=== PATIENT | female | born 2000 | race American Indian/Alaskan Native ===

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

== ENCOUNTER 2019-05-25 12:52 | Emergency (ER) | payer MEDICARE ==
--- NOTE | 2019-05-25 13:11 | Event Note ---
ED Screening Note Date of service: 05/25/19 Time: 13:09 ED Screening Note: This is a 18 y.o. F. that presents to the ER with headache for several days. PMH of HTN Off blood pressure medication for 1 week. Denies palpitations, chest pain, visual changes. This initial assessment/diagnostic orders/clinical plan/treatment(s) is/are subject to change based on patients health status, clinical progression and re- assessment by fellow clinical providers in the ED. Further treatment and workup at subsequent clinical providers discretion. Patient/guardian urged not to elope from the ED as their condition may be serious if not clinically assessed and managed. Initial orders include:
[2019-05-25 13:12] VITALS: BP 153/95
[2019-05-25] MEDS ORDERED: KETOROLAC 30 MG/1 ML INJ IM ONE (13:42)
[2019-05-25] MEDS ORDERED: oxyCODONE /ACETAMINOPHEN 5-325MG TAB PO ONE (13:42)
--- NOTE | 2019-05-25 13:48 | Emergency Department Report ---
ED Headache HPI - General Chief Complaint: Headache Stated Complaint: SEVERE HEADACHE/PAIN Time Seen by Provider: 05/25/19 13:09 Source: patient, old records Exam Limitations: no limitations - History of Present Illness Initial Comments: Rubi is a pleasant 18-year-old female with history of schizophrenia, hypertension, obesity who presents with headache left temporal region for several weeks. She explained that she's had headaches for several years since her teenage years. Her spool cleaner hand has referred her to a neurologist. However she missed her appointment. Dull headache without photophobia vomiting or neck pain. No fever. This headache has been intermittent for the past several weeks. Denies visual changes. Denies paresthesias. Denies walking PCP is Dr. Andrea Pete The consciousness is Dr. Vital Dictations include Alicia Marquez Norvasc Timing/Duration: other (several weeks) Quality: moderate Head Injury Location: temporal, parietal Recent Head Trauma: frequent headaches, chronic headaches Associated Symptoms: denies symptoms Allergies/Adverse Reactions: Allergies amoxicillin Allergy (Verified 06/06/17 21:10) Anaphylaxis Penicillins Allergy (Verified 06/06/17 21:10) Anaphylaxis quetiapine [From Seroquel] Allergy (Verified 06/06/17 21:10) Angioedema Home Medications: Ambulatory Orders Sertraline [Zoloft] 50 mg PO DAILY 08/25/17 risperiDONE [RisperDAL] 2 mg PO QHS 08/25/17 Butalb/Acetamin/Caff 50-325-40 [Fioricet 50-325-40] 1 tab PO Q6HR PRN #10 tab 05/25/19 ED Review of Systems ROS: Stated complaint: SEVERE HEADACHE/PAIN Other details as noted in HPI Comment: All other systems reviewed and negative Constitutional: denies: fever, malaise Cardiovascular: denies: chest pain Gastrointestinal: denies: abdominal pain, nausea, vomiting Neurological: headache. denies: weakness, numbness, paresthesias, confusion, abnormal gait, vertigo Psychiatric: denies: auditory hallucinations, visual hallucinations, homicidal thoughts, suicidal thoughts ED Past Medical Hx - Past Medical History Previous Medical History?: Yes Hx Hypertension: Yes Hx Psychiatric Treatment: Yes (schizophrenia, hearing voices) - Surgical History Past Surgical History?: No - Social History Smoking Status: Never Smoker Substance Use Type: None - Medications Home Medications: Home Medications Medication Instructions Recorded Confirmed Last Taken Type Sertraline [Zoloft] 50 mg PO DAILY 08/25/17 08/25/17 08/25/17 History risperiDONE [RisperDAL] 2 mg PO QHS 08/25/17 08/25/17 08/24/17 History Butalb/Acetamin/Caff 50-325-40 1 tab PO Q6HR PRN #10 tab 05/25/19 Unknown Rx [Fioricet 50-325-40] ED Physical Exam - General Limitations: No Limitations General appearance: alert, in no apparent distress, other (appears well, appears comfortable, currently talking on cell phone ) - Head Head exam: Present: atraumatic, normocephalic - Eye Eye exam: Present: normal appearance. Absent: scleral icterus, conjunctival injection - ENT ENT exam: Present: mucous membranes moist - Neck Neck exam: Present: normal inspection, full ROM - Respiratory Respiratory exam: Present: normal lung sounds bilaterally. Absent: respiratory distress, wheezes, rales, rhonchi - Cardiovascular Cardiovascular Exam: Present: regular rate, normal rhythm, normal heart sounds. Absent: systolic murmur, diastolic murmur, rubs, gallop - GI/Abdominal GI/Abdominal exam: Present: soft, normal bowel sounds. Absent: distended, tenderness, guarding, rebound - Extremities Exam Extremities exam: Present: normal inspection - Neurological Exam Neurological exam: Present: alert, oriented X3, CN II-XII intact, normal gait, other (articulate insightful able to provide a full detailed medical history). Absent: motor sensory deficit - Psychiatric Psychiatric exam: Present: normal mood, flat affect - Skin Skin exam: Present: warm, dry, intact, normal color. Absent: rash ED Course Vital Signs 05/25/19 13:09 Temperature 98.4 F Pulse Rate 115 H Respiratory 16 Rate Blood Pressure 153/95 [Left] O2 Sat by Pulse 96 Oximetry ED Medical Decision Making - Medical Decision Making Rubi presents with left temporal parietal headache for several weeks. Differential diagnosis includes: Tension headache, migraine headache, pseudotumor cerebri. She will benefit from outpatient neurological evaluation. I strongly encourage evaluation by neurologist. She understands if symptoms glass. Prescribed Fioricet. Critical care attestation.: If time is entered above; I have spent that time in minutes in the direct care of this critically ill patient, excluding procedure time. ED Disposition Clinical Impression: Headache, acute Disposition: DC-01 TO HOME OR SELFCARE Is pt being admited?: No Does the pt Need Aspirin: No Condition: Stable Additional Instructions: It is very important that you see a neurologist for further treatment and evaluation. Prescriptions: Butalb/Acetamin/Caff 50-325-40 [Fioricet 50-325-40] 1 tab PO Q6HR PRN #10 tab PRN Reason: Headache Referrals: ALMA GUPTA MD [Staff Physician] - [facility]
== END 2019-05-25 13:58 | disposition home or self-care (01) ==
LOC: ED 12:52
DX: R51 Headache (principal); I10 Essential (primary) hypertension; F20.9 Schizophrenia, unspecified; Z79.899 Other long term (current) drug therapy; Z88.2 Allergy status to sulfonamides; Z88.1 Allergy status to other antibiotic agents; Z88.8 Allergy status to other drugs, medicaments and biological substances
CPT/HCPCS: 96372; 99282; J1885

== ENCOUNTER 2019-05-29 10:45 | Emergency (ER) | payer MEDICARE ==
[2019-05-29] MEDS ORDERED: SODIUM CHLORIDE 0.9% 1000 ML 1,000 ML IV ONE (11:46)
[2019-05-29] MEDS ORDERED: ONDANSETRON 4 MG/2 ML INJ IV ONE (11:46)
--- NOTE | 2019-05-29 11:46 | Emergency Department Report ---
ED N/V/D HPI - General Chief complaint: Nausea/Vomiting/Diarrhea Stated complaint: HEADACHE/MIGRAINE/HEADACHE/VOMITING Time Seen by Provider: 05/29/19 11:34 Source: patient Mode of arrival: Ambulatory Limitations: No Limitations - History of Present Illness Initial comments: 18 year old female presents to ED c/o nausea and vomiting and upper abdominal pa in. Onset 4 weeks ago. She states nausea and vomiting mainly after eating. She also reports associated left parietal OTOOLE intermittently x 4 weeks. She denies any diarrhea, ill contacts, bad food intake, or recent travel. She denies any abdominal surgeries. Her L[facility] was beginning of May. She denies any vaginal or uti symptoms. Denies any fever or chills. MD complaint: nausea, vomiting, abdominal pain -: week(s) (4 weeks ) - Related Data Home Medications Medication Instructions Recorded Confirmed Last Taken Sertraline [Zoloft] 50 mg PO DAILY 08/25/17 08/25/17 08/25/17 risperiDONE [RisperDAL] 2 mg PO QHS 08/25/17 08/25/17 08/24/17 Previous Rx's Medication Instructions Recorded Last Taken Type Butalb/Acetamin/Caff 50-325-40 1 tab PO Q6HR PRN #10 tab 05/25/19 Unknown Rx [Fioricet 50-325-40] Famotidine [Pepcid] 40 mg PO QHS #30 tablet 05/29/19 Unknown Rx Ondansetron [Zofran Odt] 4 mg PO Q8HR PRN #15 tab.rapdis 05/29/19 Unknown Rx Allergies Allergy/AdvReac Type Severity Reaction Status Date / Time amoxicillin Allergy Anaphylaxis Verified 06/06/17 21:10 Penicillins Allergy Anaphylaxis Verified 06/06/17 21:10 quetiapine [From Seroquel] Allergy Angioedema Verified 06/06/17 21:10 ED Review of Systems ROS: Stated complaint: HEADACHE/MIGRAINE/HEADACHE/VOMITING Other details as noted in HPI Comment: All other systems reviewed and negative Constitutional: denies: chills, fever Cardiovascular: denies: chest pain Gastrointestinal: abdominal pain, nausea, vomiting. denies: diarrhea, hematemesis Genitourinary: denies: frequency, hematuria, discharge Musculoskeletal: denies: back pain Skin: denies: rash Neurological: headache. denies: weakness, numbness, paresthesias, confusion, abnormal gait, vertigo ED Past Medical Hx - Past Medical History Previous Medical History?: Yes Hx Hypertension: Yes Hx Psychiatric Treatment: Yes (schizophrenia, hearing voices) - Surgical History Past Surgical History?: No - Social History Smoking Status: Never Smoker - Medications Home Medications: Home Medications Medication Instructions Recorded Confirmed Last Taken Type Sertraline [Zoloft] 50 mg PO DAILY 08/25/17 08/25/17 08/25/17 History risperiDONE [RisperDAL] 2 mg PO QHS 08/25/17 08/25/17 08/24/17 History Butalb/Acetamin/Caff 50-325-40 1 tab PO Q6HR PRN #10 tab 05/25/19 Unknown Rx [Fioricet 50-325-40] Famotidine [Pepcid] 40 mg PO QHS #30 tablet 05/29/19 Unknown Rx Ondansetron [Zofran Odt] 4 mg PO Q8HR PRN #15 tab.rapdis 05/29/19 Unknown Rx ED Physical Exam - General Limitations: No Limitations General appearance: alert, in no apparent distress - Head Head exam: Present: atraumatic, normocephalic - Eye Eye exam: Present: normal appearance, PERRL, EOMI - ENT ENT exam: Present: normal exam, mucous membranes dry (Mild ) - Neck Neck exam: Present: normal inspection. Absent: tenderness, meningismus - Respiratory Respiratory exam: Present: normal lung sounds bilaterally. Absent: respiratory distress, wheezes, rales, rhonchi - Cardiovascular Cardiovascular Exam: Present: regular rate, normal rhythm, normal heart sounds - GI/Abdominal GI/Abdominal exam: Present: soft, tenderness (Eigastric and RUQ without guarding or rebound) - Back Exam Back exam: Present: full ROM - Neurological Exam Neurological exam: Present: alert, oriented X3, CN II-XII intact - Psychiatric Psychiatric exam: Present: normal affect, normal mood ED Course Vital Signs 05/29/19 05/29/19 13:33 14:03 Respiratory 18 16 Rate ED Medical Decision Making - Lab Data Result diagrams: 05/29/19 13:05 05/29/19 13:05 - Radiology Data Radiology results: report reviewed Ordering Physician: EMA GAYTAN Date of Service: 05/29/19 Procedure(s): US abdomen limited Accession Number(s): [id number] cc: EMA Evens [place] ULTRASOUND ABDOMEN, LIMITED (RIGHT UPPER QUADRANT) INDICATION: Epigastric/RUQ pain nausea and vomiting. COMPARISON: None available. FINDINGS: Pancreas: Visualized portion shows no significant abnormality. Liver: Normal. Gallbladder: Normal. Bile ducts: Normal. Common Bile Duct measures 3.3 mm. Free fluid: None. Additional Findings: None. IMPRESSION: Unremarkable right upper quadrant ultrasound. Signer Name: Toribio Valdes MD Signed: 05/29/2019 1:12 PM Workstation Name: [id number] Transcribed By: ES Dictated By: Toribio Valdes MD Electronically Authenticated By: Toribio Valdes MD Signed Date/Time: 05/29/19 131 DD/ TD/TT: - Medical Decision Making Patient reports feeling better after medications and fluids. Ultrasound and labs unremarkable. Repeat abdominal exams are soft nontender abdomen. Patient is not ill-appearing, nontoxic, does not appear to be in any acute distress. VS remained stable. Discussed lab results, ultrasound results, suspected diagnosis and treatment plan with patient. Recommended follow-up with primary care doctor and/or GI specialist if her pain continues, but if she gets worse recommend she return to the ER. Patient is stable at time of discharge. Critical care attestation.: If time is entered above; I have spent that time in minutes in the direct care of this critically ill patient, excluding procedure time. ED Disposition Clinical Impression: Epigastric pain, Gastritis, Vomiting Disposition: TO HOME OR SELFCARE Is pt being admited?: No Does the pt Need Aspirin: No Condition: Stable Instructions: Gastritis (ED), Acute Nausea and Vomiting (ED), Abdominal Pain (ED) Prescriptions: Famotidine [Pepcid] 40 mg PO QHS #30 tablet Ondansetron [Zofran Odt] 4 mg PO Q8HR PRN #15 tab.rapdis PRN Reason: Vomiting Referrals: [facility] MD JOSE [Primary Care Provider] - 3-5 Days TATUM DURBIN MD [Staff Physician] - 3-5 Days [facility] [Provider Group] - 3-5 Days Time of Disposition: 14:47
[2019-05-29] MEDS ORDERED: KETOROLAC 30 MG/1 ML INJ IV ONE (11:47)
[2019-05-29] MEDS ORDERED: FAMOTIDINE 20 MG/2 ML INJ IV ONE (11:47)
[2019-05-29 12:22] LABS: HCG Qualitative,Urine Negative (Negative)
[2019-05-29 12:34] LABS: Bacteria,Urine 1+ /HPF (Negative); Bilirubin,Urine NEG (Negative); Blood,Urine NEG (Negative); Color,Urine Yellow (Yellow); Protein,Urine <15 mg/dL mg/dL (Negative); Urobilinogen,Urine < 2.0 mg/dL (<2.0)
--- NOTE | 2019-05-29 13:17 | Ultrasound Report ---
ULTRASOUND ABDOMEN, LIMITED (RIGHT UPPER QUADRANT) INDICATION: Epigastric/RUQ pain nausea and vomiting. COMPARISON: None available. FINDINGS: Pancreas: Visualized portion shows no significant abnormality. Liver: Normal. Gallbladder: Normal. Bile ducts: Normal. Common Bile Duct measures 3.3 mm. Free fluid: None. Additional Findings: None. IMPRESSION: Unremarkable right upper quadrant ultrasound. Signer Name: Toribio Valdes MD Signed: 05/29/2019 1:12 PM Workstation Name: [id number]
[2019-05-29 13:56] LABS: Basophils % (Auto) 0.6 % (0.0-1.8); Eosinophils % (Auto) 0.7 % (0.0-4.3); Hematocrit 36.5 % (30.3-42.9); Hemoglobin 12.2 gm/dl (10.1-14.3); Lymphocytes # (Auto) 1.4 K/mm3 (1.2-5.4); Lymphocytes % (Auto) 19.5 % (13.4-35.0); Mean Corpuscular HGB Conc 34 % (30-34); Mean Corpuscular Volume 83 fl (79-97); Monocytes # (Auto) 0.4 K/mm3 (0.0-0.8); Monocytes % (Auto) 6.3 % (0.0-7.3); Platelet Count 357 K/mm3 (140-440); Red Blood Count 4.38 M/mm3 (3.65-5.03); Red Cell Distribution Width 15.5 % (13.2-15.2)
[2019-05-29 14:21] LABS: Alanine Aminotransferase 26 units/L (7-56); BUN/Creatinine Ratio 13; Blood Urea Nitrogen 8 mg/dL (7-17); Calcium 9.5 mg/dL (8.4-10.2); Hemolysis Index 6
== END 2019-05-29 14:54 | disposition home or self-care (01) ==
LOC: ED 10:45
DX: K29.70 Gastritis, unspecified, without bleeding (principal); I10 Essential (primary) hypertension; F20.9 Schizophrenia, unspecified; Z79.899 Other long term (current) drug therapy; Z88.1 Allergy status to other antibiotic agents; Z88.0 Allergy status to penicillin; Z88.6 Allergy status to analgesic agent
CPT/HCPCS: 36415; 76705; 80053; 81001; 81025; 83690; 85025; 96361; 96374; 96375; 99284; J1885; J2405; J7030

== ENCOUNTER 2019-06-03 15:30 | Emergency (ER) | payer MEDICARE ==
[2019-06-03 19:24] VITALS: BP 136/80
--- NOTE | 2019-06-03 19:28 | Event Note ---
ED Screening Note Date of service: 06/03/19 Time: 19:27 ED Screening Note: c/o mid/upper abdominal pain and N/V (witheating only) x 2 days seen here for same 05/29/19 This initial assessment/diagnostic orders/clinical plan/treatment(s) is/are subject to change based on patients health status, clinical progression and re- assessment by fellow clinical providers in the ED. Further treatment and workup at subsequent clinical providers discretion. Patient/guardian urged not to elope from the ED as their condition may be serious if not clinically assessed and managed. Initial orders include: Labs CT
[2019-06-03 20:45] LABS: Bacteria,Urine 1+ /HPF (Negative); Bilirubin,Urine NEG (Negative); Blood,Urine NEG (Negative); Color,Urine Yellow (Yellow); HCG Qualitative,Urine Negative (Negative); Mucus,Urine 2+ /HPF; Protein,Urine <15 mg/dL mg/dL (Negative); Urobilinogen,Urine < 2.0 mg/dL (<2.0)
[2019-06-03 20:46] LABS: Basophils # (Auto) 0.1 K/mm3 (0.0-0.1); Eosinophils # (Auto) 0.1 K/mm3 (0.0-0.4); Eosinophils % (Auto) 0.9 % (0.0-4.3); Hematocrit 36.6 % (30.3-42.9); Hemoglobin 12.4 gm/dl (10.1-14.3); Lymphocytes # (Auto) 2.1 K/mm3 (1.2-5.4); Lymphocytes % (Auto) 27.5 % (13.4-35.0); Mean Corpuscular HGB Conc 34 % (30-34); Mean Corpuscular Volume 83 fl (79-97); Monocytes # (Auto) 0.5 K/mm3 (0.0-0.8); Monocytes % (Auto) 6.1 % (0.0-7.3); Platelet Count 366 K/mm3 (140-440); Red Blood Count 4.43 M/mm3 (3.65-5.03)
[2019-06-03 21:07] LABS: Alanine Aminotransferase 30 units/L (7-56); Albumin 4.2 g/dL (3.9-5); BUN/Creatinine Ratio 16; Blood Urea Nitrogen 11 mg/dL (7-17); Calcium 9.7 mg/dL (8.4-10.2); Hemolysis Index 23
== END 2019-06-03 20:30 | disposition left against medical advice (07) ==
LOC: ED 15:30
DX: R10.10 Upper abdominal pain, unspecified (principal); Z53.21 Procedure and treatment not carried out due to patient leaving prior to being seen by health care provider
CPT/HCPCS: 36415; 80053; 81001; 81025; 83690; 85025

== ENCOUNTER 2019-12-28 14:56 | Emergency (ER) | payer MEDICARE ==
[2019-12-28 15:41] LABS: Basophils % (Auto) 0.7 % (0.0-1.8); Eosinophils # (Auto) 0.1 K/mm3 (0.0-0.4); Eosinophils % (Auto) 0.8 % (0.0-4.3); Hematocrit 38.9 % (30.3-42.9); Hemoglobin 12.6 gm/dl (10.1-14.3); Lymphocytes % (Auto) 30.4 % (13.4-35.0); Mean Corpuscular HGB Conc 33 % (30-34); Mean Corpuscular Volume 80 fl (79-97); Monocytes # (Auto) 0.6 K/mm3 (0.0-0.8); Monocytes % (Auto) 8.6 % (0.0-7.3); Platelet Count 353 K/mm3 (140-440); Red Blood Count 4.84 M/mm3 (3.65-5.03); Red Cell Distribution Width 15.9 % (13.2-15.2)
[2019-12-28 15:51] LABS: BUN/Creatinine Ratio 11; Blood Urea Nitrogen 8 mg/dL (7-17); Calcium 9.3 mg/dL (8.4-10.2); Hemolysis Index 11
--- NOTE | 2019-12-29 03:15 | Emergency Department Report ---
HPI - General Chief Complaint: Psych Time Seen by Provider: 12/29/19 03:06 - [facility] HPI: Room 16 The patient is a 19-year-old female present with a chief complaint of suicidal ideation. Patient has a history of schizophrenia and depression and states for the past month she has had suicidal ideation. Patient states she has been compliant with all her medications. Patient states she has not made any attempts at harming herself since she has had these thoughts but her plan was to hang herself. ED Past Medical Hx - Past Medical History Previous Medical History?: Yes Hx Hypertension: Yes Hx Psychiatric Treatment: Yes (schizophrenia, hearing voices, depression) - Surgical History Past Surgical History?: No - Family History Family history: no significant - Social History Smoking Status: Never Smoker Substance Use Type: None (Denies illicit drug use) - Medications Home Medications: Home Medications Medication Instructions Recorded Confirmed Last Taken Type Sertraline [Zoloft] 50 mg PO DAILY 08/25/17 12/27/19 08/25/17 History risperiDONE [RisperDAL] 2 mg PO QHS 08/25/17 12/27/19 08/24/17 History ED Review of Systems ROS: Stated complaint: SUICIDAL THOUGHTS Other details as noted in HPI Constitutional: no symptoms reported Respiratory: no symptoms reported Endocrine: no symptoms reported Psychiatric: suicidal thoughts Physical Exam - Physical Exam Vital Signs: Vital Signs 12/28/19 15:07 Temperature 98.9 F Pulse Rate 105 H Respiratory 18 Rate Blood Pressure 144/97 O2 Sat by Pulse 99 Oximetry Physical Exam: GENERAL: The patient is well-developed well-nourished female lying on stretcher not appearing to be in acute distress. [] HEENT: Normocephalic. Atraumatic. Extraocular motions are intact. Patient has moist mucous membranes. NECK: Supple. Trachea midline CHEST/LUNGS: Clear to auscultation. There is no respiratory distress noted. HEART/CARDIOVASCULAR: Regular. There is no tachycardia. There is no gallop rub or murmur. ABDOMEN: Abdomen is soft, nontender. Patient has normal bowel sounds. There is no abdominal distention. SKIN: There is no rash. There is no edema. There is no diaphoresis. NEURO: The patient is awake, alert, and oriented. The patient is cooperative. The patient has normal speech MUSCULOSKELETAL: There is no evidence of acute injury. ED Course Vital Signs 12/28/19 15:07 Temperature 98.9 F Pulse Rate 105 H Respiratory 18 Rate Blood Pressure 144/97 O2 Sat by Pulse 99 Oximetry ED Medical Decision Making - Lab Data Result diagrams: 12/28/19 15:19 12/28/19 15:19 Laboratory Tests 12/28/19 12/28/19 12/28/19 15:19 15:19 15:19 WBC RBC Hgb Hct MCV MCH MCHC RDW Plt Count Lymph % (Auto) Deuel % (Auto) Eos % (Auto) Baso % (Auto) Lymph # Deuel # Eos # Baso # Seg Neutrophils % Seg Neutrophils # Sodium 139 Potassium 3.6 Chloride 103.0 Carbon Dioxide 22 Anion Gap 18 BUN 8 Creatinine 0.7 Estimated GFR > 60 BUN/Creatinine Ratio 11 Glucose 141 H Calcium 9.3 Salicylates < 0.3 L Acetaminophen < 5.0 L Plasma/Serum Alcohol 12/28/19 12/28/19 15:19 15:19 WBC 6.6 RBC 4.84 Hgb 12.6 Hct 38.9 MCV 80 MCH 26 L MCHC 33 RDW 15.9 H Plt Count 353 Lymph % (Auto) 30.4 Deuel % (Auto) 8.6 H Eos % (Auto) 0.8 Baso % (Auto) 0.7 Lymph # 2.0 Deuel # 0.6 Eos # 0.1 Baso # 0.0 Seg Neutrophils % 59.5 Seg Neutrophils # 3.9 Sodium Potassium Chloride Carbon Dioxide Anion Gap BUN Creatinine Estimated GFR BUN/Creatinine Ratio Glucose Calcium Salicylates Acetaminophen Plasma/Serum Alcohol < 0.01 - Differential Diagnosis Suicidal ideation Critical care attestation.: If time is entered above; I have spent that time in minutes in the direct care of this critically ill patient, excluding procedure time. ED Disposition Clinical Impression: Suicidal ideation Disposition: [id number]/TX-[facility] PS[facility] HOSP/PSY UNIT Is pt being admited?: No Does the pt Need Aspirin: No Condition: Stable Referrals: PRIMARY CARE, [Primary Care Provider] - 3-5 Days Time of Disposition: 03:14 (Awaiting acceptance)
[2019-12-29 17:42] LABS: Bilirubin,Urine NEG (Negative); Blood,Urine NEG (Negative); Color,Urine Yellow (Yellow); Mucus,Urine FEW /HPF; Protein,Urine <15 mg/dL mg/dL (Negative); Urobilinogen,Urine < 2.0 mg/dL (<2.0)
[2019-12-29 17:49] LABS: Amphetamine Screen,Urine PRESUMPTIVE NEGATIVE; Benzodiazepines Screen,Urine PRESUMPTIVE NEGATIVE; Cannabinoid Screen,Urine PRESUMPTIVE NEGATIVE; Cocaine Screen,Urine PRESUMPTIVE NEGATIVE; Methadone Screen,Urine PRESUMPTIVE NEGATIVE; Opiate Screen,Urine PRESUMPTIVE NEGATIVE
--- NOTE | 2019-12-30 09:56 | Consultation ---
History of Present Illness - Reason for Consult Consult date: 12/30/19 Reason for consult: SI, AH - History of Present Psychiatric Illness The patient's medical record was reviewed and the patient's progress was discussed with the nursing staff. The nurse note states the patient reports SI with no plan and AH "telling me to ." Pt denies HI or VH. Rubi Martin is a 19y/o female patient who presents to the ER with suicidal ideation x one week and auditory hallucinations. The patient states that she's been off her medications for about a week. She says she wasn't taking them as prescribed because she feels like "they don't work." The patient verbalizes being "depressed, and it's getting worse." The patient says she is currently suicidal, but has no plan. She says she "hears voices telling me I should be ." The patient says she has a history of "depression and schizoaffective disorder." She says she normally takes "trileptal, zoloft, and remeron." The patient denies any illicit drug use, alcohol or nicotine. PAST PSYCHIATRIC HISTORY Diagnoses: Schizoaffective Disorder and Depression Suicide attempts or Self-harm behavior: Twice Prior psychiatric hospitalizations: Twice Substance Abuse history: Denies Previous psychiatric medications tried: zoloft, trileptal, seroqul, remeron Outpatient treatment: Yes PAST MEDICAL HISTORY: None reported Family Psychiatric History: None reported or documented SOCIAL HISTORY Marital Status: Single Living Arrangements: retirement Employment Status: Unemployed Access to guns/weapons: Denies Education: 11th grade History of Abuse: Denies Legal History: Denies REVIEW OF SYSTEMS Constitutional: Negative for weight loss ENT: Negative for stridor Respiratory: Negative for cough or hemoptysis All other systems reviewed and are negative MENTAL STATUS EXAMINATION General Appearance: Dressed appropriately Behavior: Calm and cooperative Mood: "depressed" Affect and affective range: Congruent with stated mood Speech: Normal tone and pace Thought Process: Goal directed Thought content: Suicidal Ideation: Yes Homicidal Ideation: Denies Hallucination: Auditory Delusions: None elicited Insight/Judgment: Limited Memory/Cognition: Limited ASSESSMENT Major Depressive Disorder, Severe w/Psychotic Features RECOMMENDATIONS MEDICATIONS Start Abilift 5mg po daily Increase Zoloft 100mg po daily Start Trazodone 50mg po qhs Start Depakote DR 125mg po BID Risks, benefits and alternatives of medications discussed with the patient, questions answered and consent obtained from patient. PSYCHOTHERAPY: Supportive psychotherapy provided MEDICAL: Per primary team DELIRIUM PRECAUTIONS: Please re-orient patient frequently, keep lights on during the day, and minimize benzodiazepines and opiates as these medications could worsen patient's confusion. [employer] TEAMMATE: per medical team DISPOSITION: The patient meets the requirement for acute inpatient psychiatric treatment. She may transfer to an acute psychiatric facility medically clear. The patient Will continue to follow Thank you for the consult. Please contact with any questions and/or concerns. Medications and Allergies Allergies Allergy/AdvReac Type Severity Reaction Status Date / Time amoxicillin Allergy Anaphylaxis Verified 06/06/17 21:10 Penicillins Allergy Anaphylaxis Verified 06/06/17 21:10 quetiapine [From Seroquel] Allergy Angioedema Verified 06/06/17 21:10 Home Medications Medication Instructions Recorded Confirmed Last Taken Type Sertraline [Zoloft] 50 mg PO DAILY 08/25/17 12/27/19 08/25/17 History risperiDONE [RisperDAL] 2 mg PO QHS 08/25/17 12/27/19 08/24/17 History Mental Status Exam - Vital signs Last Vital Signs Temp 98.1 F 12/30/19 02:00 Pulse 99 H 12/30/19 02:00 Resp 16 12/30/19 08:28 BP 120/67 12/30/19 02:00 Pulse Ox 96 12/30/19 02:00 Results Result Diagrams: 12/28/19 15:19 12/28/19 15:19 All other labs normal.
[2019-12-30] MEDS ORDERED: SERTRALINE 100 MG TAB PO SCH (11:00)
[2019-12-30] MEDS ORDERED: DIVALPROEX DR 125 MG TAB PO SCH (11:00)
[2019-12-30] MEDS ORDERED: ARIPiprazole 5 MG TAB PO SCH (11:00)
[2019-12-30] MEDS ORDERED: risperiDONE 1 MG TAB PO SCH (14:00)
[2019-12-30 20:04] LABS: HCG Qualitative,Urine Negative (Negative)
[2019-12-30 21:46] VITALS: BP 122/76
[2019-12-30] MEDS ORDERED: traZODone 50 MG TAB PO SCH (22:00)
== END 2019-12-30 21:22 ==
LOC: ED 14:56
DX: I10 Essential (primary) hypertension (principal); F20.9 Schizophrenia, unspecified; F32.9 Major depressive disorder, single episode, unspecified; Z79.899 Other long term (current) drug therapy
CPT/HCPCS: 36415; 80048; 80307; 80320; 81001; 81025; 85025; G0480

== ENCOUNTER 2021-08-02 17:57 | Emergency (ER) | payer MEDICARE | END 2021-08-02 20:47 | disposition left against medical advice (07) | LOC: ED 17:57 | DX: R10.9 Unspecified abdominal pain (principal); Z53.21 Procedure and treatment not carried out due to patient leaving prior to being seen by health care provider ==

== ENCOUNTER 2021-08-06 21:00 | Emergency (ER) | payer MEDICARE ==
[2021-08-06] MEDS ORDERED: LORazepam 2 MG/ML VIAL IM PRN (23:29)
[2021-08-06] MEDS ORDERED: HALOPERIDOL LACTATE 5 MG/1 ML INJ IM PRN (23:29)
--- NOTE | 2021-08-06 23:30 | Emergency Department Report ---
ED General Adult HPI - General Chief complaint: Psych Stated complaint: MENTAL HEALTH CONCERNS Time Seen by Provider: 08/06/21 22:48 Source: patient, RN notes reviewed, old records reviewed Mode of arrival: Ambulatory Limitations: No Limitations - History of Present Illness Initial comments: The patient was evaluated in the emergency department for symptoms described in the history of present illness. He/she was evaluated in the context of the global COVID-19 pandemic, which necessitated consideration that the patient might be at risk for infection with the virus that causes COVID-19. Institutional protocols and algorithms that pertain to the evaluation of patients at risk for COVID-19 are in a state of rapid change based on information released by regulatory bodies including the CDC and federal and state organizations. These policies and algorithms were followed during the patient's care in the emergency department. Please note that these policies, procedures and recommendations changed on a rapid basis. The patient is a 20-year-old female, with a past medical history of obesity, hypertension, schizophrenia and suicidal ideation, presenting to the ER today with a complaint of hallucinations and suicidality. She denies physical pain. She denies cough and urinary symptoms. She endorses compliance with her medications. She resides in a care home. -: Gradual Severity scale (0 -10): 0 Improves with: none Worsens with: none Associated Symptoms: denies other symptoms - Related Data Home Medications Medication Instructions Recorded Confirmed Last Taken Sertraline [Zoloft] 50 mg PO DAILY 08/25/17 12/27/19 08/25/17 risperiDONE [RisperDAL] 2 mg PO QHS 08/25/17 12/27/19 08/24/17 Allergies Allergy/AdvReac Type Severity Reaction Status Date / Time amoxicillin Allergy Anaphylaxis Verified 06/06/17 21:10 Penicillins Allergy Anaphylaxis Verified 06/06/17 21:10 quetiapine [From Seroquel] Allergy Angioedema Verified 06/06/17 21:10 ED Review of Systems ROS: Stated complaint: MENTAL HEALTH CONCERNS Other details as noted in HPI Comment: All other systems reviewed and negative Psychiatric: auditory hallucinations, suicidal thoughts ED Past Medical Hx - Past Medical History Previous Medical History?: Yes Hx Hypertension: Yes Hx Psychiatric Treatment: Yes (schizophrenia, hearing voices, depression) Additional medical history: obesity - Surgical History Past Surgical History?: No - Social History Smoking Status: Never Smoker Substance Use Type: None - Medications Home Medications: Home Medications Medication Instructions Recorded Confirmed Last Taken Type Sertraline [Zoloft] 50 mg PO DAILY 08/25/17 12/27/19 08/25/17 History risperiDONE [RisperDAL] 2 mg PO QHS 08/25/17 12/27/19 08/24/17 History ED Physical Exam - General Limitations: No Limitations General appearance: alert, in no apparent distress, obese - Head Head exam: Present: atraumatic, normocephalic - Eye Eye exam: Present: normal appearance, EOMI. Absent: nystagmus - ENT ENT exam: Present: normal exam, normal orophraynx, mucous membranes moist, jhony l external ear exam - Neck Neck exam: Present: normal inspection, full ROM. Absent: tenderness, meningismus - Respiratory Respiratory exam: Present: normal lung sounds bilaterally. Absent: respiratory distress, wheezes, rales, rhonchi, stridor, decreased breath sounds - Cardiovascular Cardiovascular Exam: Present: normal rhythm, tachycardia, normal heart sounds. Absent: bradycardia, irregular rhythm, systolic murmur, diastolic murmur, rubs, gallop - GI/Abdominal GI/Abdominal exam: Present: soft. Absent: distended, tenderness, guarding, rebound, rigid, pulsatile mass - Extremities Exam Extremities exam: Present: normal inspection, full ROM, other (2+ pulses noted in the bilateral upper and lower extremities. There is no palpable cord. negative Homans sign. Muscular compartments are soft. The pelvis is stable.). Absent: pedal edema, calf tenderness - Back Exam Back exam: Present: normal inspection, full ROM. Absent: tenderness, CVA tenderness (R), CVA tenderness (L), paraspinal tenderness, vertebral tenderness - Neurological Exam Neurological exam: Present: alert, oriented X3, other (No facial droop. Tongue midline. Extraocular movements intact bilaterally. Facial sensation intact to light touch in V1, V2, V3 distribution bilaterally. 5 and a 5 strength in 4 extremities. Sensation intact to light touch in 4 extremities.). Absent: motor sensory deficit - Psychiatric Psychiatric exam: Present: flat affect, suicidal ideation - Skin Skin exam: Present: warm, dry, intact, normal color. Absent: rash ED Course Vital Signs 08/06/21 08/06/21 22:08 22:46 Temperature 98.1 F Pulse Rate 104 H Respiratory 18 Rate Blood Pressure 152/102 [Right] O2 Sat by Pulse 99 99 Oximetry - Reevaluation(s) Reevaluation #1: 08/07/21 01:05 Differential diagnosis, including but not limited to: Mood disorder, suicidali ty, hallucinations, medical clearance for psychiatric placement Assessment and plan: 20-year-old female, who is afebrile, with reassuring vital signs with exception of minimal tachycardia, chronic elevated blood pressure, who is no acute medical complaints at this time, presenting to the ER with a complaint of painless hallucinations with suicidal thoughts. 1013 ordered by myself. Appropriate screening laboratory studies ordered. Have requested that nursing team reconcile home medications. Elevated blood pressure asymptomatic, and not acutely decompensated. Please reference the [employer] clinical policy on asymptomatic hypertension. Reassess after laboratory studies have resulted. Discussed plan of care with the patient. She is agreeable to the plan of care. Have specifically discussed significance of 1013. 08/07/21 01:31 Laboratory studies are unremarkable. Urinalysis Covid swab and urine drug screen pending. The emergency room will follow along as the patient provides these diagnostics. At this point time, the patient does not appear to have an i mmediate medical contraindication to psychiatric admission, evaluation, consultation and placement. ED Medical Decision Making - Lab Data Result diagrams: 08/06/21 23:48 08/06/21 23:48 Vital Signs - 24 hr 08/06/21 08/06/21 22:08 22:46 Temperature 98.1 F Pulse Rate 104 H Respiratory 18 Rate Blood Pressure 152/102 [Right] O2 Sat by Pulse 99 99 Oximetry Lab Results 08/06/21 08/06/21 Range/Units 23:48 23:48 WBC 8.7 (4.5-11.0) K/mm3 RBC 3.97 (3.65-5.03) M/mm3 Hgb 11.3 (10.1-14.3) gm/dl Hct 33.4 (30.3-42.9) % MCV 84 (79-97) fl MCH 29 (28-32) pg MCHC 34 (30-34) % RDW 15.8 H (13.2-15.2) % Plt Count 388 (140-440) K/mm3 HCG, Qual Negative (Negative) Vital Signs 08/06/21 08/06/21 22:08 22:46 Temperature 98.1 F Pulse Rate 104 H Respiratory 18 Rate Blood Pressure 152/102 [Right] O2 Sat by Pulse 99 99 Oximetry Lab Results 08/06/21 08/06/21 08/06/21 Range/Units 23:48 23:48 23:48 WBC 8.7 (4.5-11.0) K/mm3 RBC 3.97 (3.65-5.03) M/mm3 Hgb 11.3 (10.1-14.3) gm/dl Hct 33.4 (30.3-42.9) % MCV 84 (79-97) fl MCH 29 (28-32) pg MCHC 34 (30-34) % RDW 15.8 H (13.2-15.2) % Plt Count 388 (140-440) K/mm3 Sodium 140 (137-145) mmol/L Potassium 3.6 (3.6-5.0) mmol/L Chloride 104.0 (98-107) mmol/L Carbon Dioxide 22 (22-30) mmol/L Anion Gap 18 mmol/L BUN 7 (7-17) mg/dL Creatinine 0.6 (0.6-1.2) mg/dL Estimated GFR > 60 ml/min BUN/Creatinine Ratio 12 % Glucose 101 H (65-100) mg/dL Calcium 9.1 (8.4-10.2) mg/dL HCG, Qual (Negative) Salicylates < 0.3 L (2.8-20.0) mg/dL Acetaminophen (10.0-30.0) ug/mL Plasma/Serum Alcohol (0-0.07) % 08/06/21 08/06/21 08/06/21 Range/Units 23:48 23:48 23:48 WBC (4.5-11.0) K/mm3 RBC (3.65-5.03) M/mm3 Hgb (10.1-14.3) gm/dl Hct (30.3-42.9) % MCV (79-97) fl MCH (28-32) pg MCHC (30-34) % RDW (13.2-15.2) % Plt Count (140-440) K/mm3 Sodium (137-145) mmol/L Potassium (3.6-5.0) mmol/L Chloride (98-107) mmol/L Carbon Dioxide (22-30) mmol/L Anion Gap mmol/L BUN (7-17) mg/dL Creatinine (0.6-1.2) mg/dL Estimated GFR ml/min BUN/Creatinine Ratio % Glucose (65-100) mg/dL Calcium (8.4-10.2) mg/dL HCG, Qual Negative (Negative) Salicylates (2.8-20.0) mg/dL Acetaminophen 5.0 L (10.0-30.0) ug/mL Plasma/Serum Alcohol < 0.01 (0-0.07) % Critical care attestation.: If time is entered above; I have spent that time in minutes in the direct care of this critically ill patient, excluding procedure time. ED Disposition Clinical Impression: Medical clearance for psychiatric admission, Elevated blood pressure reading, Morbid obesity Disposition: [address] [place] [address] Is pt being admited?: No Does the pt Need Aspirin: No Condition: Stable Referrals: PRIMARY CARE, [Primary Care Provider] - 3-5 Days
[2021-08-07 00:39] LABS: Hematocrit 33.4 % (30.3-42.9); Hemoglobin 11.3 gm/dl (10.1-14.3); Mean Corpuscular HGB Conc 34 % (30-34); Mean Corpuscular Volume 84 fl (79-97); Platelet Count 388 K/mm3 (140-440); Red Blood Count 3.97 M/mm3 (3.65-5.03); Red Cell Distribution Width 15.8 % (13.2-15.2)
[2021-08-07 00:46] LABS: Blood Urea Nitrogen 7 mg/dL (7-17); Calcium 9.1 mg/dL (8.4-10.2); Hemolysis Index 4
[2021-08-07 01:05] LABS: BUN/Creatinine Ratio 12
[2021-08-07 02:19] LABS: Bacteria,Urine 3+ /HPF (Negative); Bilirubin,Urine NEG (Negative); Blood,Urine NEG (Negative); Color,Urine Yellow (Yellow); Mucus,Urine 3+ /HPF; Protein,Urine <15 mg/dL mg/dL (Negative); Urobilinogen,Urine < 2.0 mg/dL (<2.0)
[2021-08-07 02:23] LABS: Amphetamine Screen,Urine PRESUMPTIVE NEGATIVE; Benzodiazepines Screen,Urine PRESUMPTIVE NEGATIVE; Cannabinoid Screen,Urine PRESUMPTIVE NEGATIVE; Cocaine Screen,Urine PRESUMPTIVE NEGATIVE; Methadone Screen,Urine PRESUMPTIVE NEGATIVE; Opiate Screen,Urine PRESUMPTIVE NEGATIVE
[2021-08-07] MEDS: METOPROLOL TARTRATE 25 MG TAB PO SCH ×2 (03:57→10:48)
--- NOTE | 2021-08-07 11:27 | Event Note ---
Date: 08/07/21 vss, no distress, no events overnight , awaiting psych consult , medically cleared
--- NOTE | 2021-08-07 11:38 | Consultation ---
History of Present Illness - Reason for Consult Consult date: 08/07/21 Reason for consult: command halluciantions - History of Present Psychiatric Illness The patient was seen today. She endorses command hallucinations telling her to kill herself. The patient denies SI/HI when asked. She says "I always here voices but they are telling me to kill myself." She verbalized feeling depressed. She says she's been off her Haldol for about a month. PAST PSYCHIATRIC HISTORY Diagnoses: Schizoaffective Disorder and Depression Suicide attempts or Self-harm behavior: Twice Prior psychiatric hospitalizations: Twice Substance Abuse history: Denies Previous psychiatric medications tried: zoloft, trileptal, seroqul, remeron Outpatient treatment: Yes PAST MEDICAL HISTORY: None reported Family Psychiatric History: None reported or documented SOCIAL HISTORY Marital Status: Single Living Arrangements: prison Employment Status: Unemployed Access to guns/weapons: Denies Education: 11th grade History of Abuse: Denies Legal History: Denies REVIEW OF SYSTEMS Constitutional: Negative for weight loss ENT: Negative for stridor Respiratory: Negative for cough or hemoptysis All other systems reviewed and are negative MENTAL STATUS EXAMINATION General Appearance and Behavior: Age appropriate,good hygiene, wearing appr opriate clothes, lying in bed, fair eye contact, cooperative polite with questioning. Cooperation: Participating/engaged Psychomotor Behavior: unremarkable and within normal limits Mood: Depressed Affect and affective range: flat Thought Process: Fluent/Logical Thought Content: Within reality, Hopelessnes Speech: Normal volume, Regular rate and rhythm Suicidal Ideation: Denies Homicidal Ideation: Denies Hallucinations: Auditory, command Impulse Control: Unimpaired Insight and Judgment: Limited insight and judgment Memory: Normal Attention: Normal, Orientation: Alert, oriented RECOMMENDATIONS 1013 Start Haldol 2mg po BID Start Doxepin 10mg po qhs Risks, benefits and alternatives of medications discussed with the patient, questions answered and consent obtained from patient. PSYCHOTHERAPY: Supportive psychotherapy provided MEDICAL: Per primary team DELIRIUM PRECAUTIONS: Please re-orient patient frequently, keep lights on during the day, and minimize benzodiazepines and opiates as these medications could worsen patient's confusion. CLEANING SUPERVISOR: Per medical DISPOSITION: Recommend acute inpatient psychiatric hospitalization at this time FOLLOW-UP: Will follow Thank you for the consult. Please contact with any questions and/or concerns. Julio staffed with Dr. Givens Medications and Allergies Allergies Allergy/AdvReac Type Severity Reaction Status Date / Time amoxicillin Allergy Anaphylaxis Verified 06/06/17 21:10 Penicillins Allergy Anaphylaxis Verified 06/06/17 21:10 quetiapine [From Seroquel] Allergy Angioedema Verified 06/06/17 21:10 Home Medications Medication Instructions Recorded Confirmed Last Taken Type Sertraline [Zoloft] 50 mg PO DAILY 08/25/17 12/27/19 08/25/17 History risperiDONE [RisperDAL] 2 mg PO QHS 08/25/17 12/27/19 08/24/17 History Active Meds: Active Medications Haloperidol Lactate (Haloperidol Lactate 5 Mg/1 Ml Inj) 5 mg IM Q6HR PRN PRN Reason: Agitation Lorazepam (Lorazepam 2 Mg/Ml Vial) 2 mg IM Q4HR PRN PRN Reason: Agitation Metoprolol Tartrate (Metoprolol Tartrate 25 Mg Tab) 12.5 mg PO BID SYD Last Admin: 08/07/21 10:48 Dose: 12.5 mg Mental Status Exam - Vital signs Last Vital Signs Temp 98.1 F 08/06/21 22:08 Pulse 99 H 08/07/21 10:48 Resp 18 08/06/21 22:08 BP 148/101 08/07/21 10:48 Pulse Ox 100 08/07/21 11:01 Results Result Diagrams: 08/06/21 23:48 08/06/21 23:48 Abnormal lab results 08/06/21 08/06/21 08/06/21 Range/Units 23:48 23:48 23:48 RDW 15.8 H (13.2-15.2) % Glucose 101 H (65-100) mg/dL U Epithel Cells (Auto) (0-13.0) /HPF Salicylates < 0.3 L (2.8-20.0) mg/dL Acetaminophen (10.0-30.0) ug/mL 08/06/21 08/07/21 Range/Units 23:48 01:54 RDW (13.2-15.2) % Glucose (65-100) mg/dL U Epithel Cells (Auto) 14.0 H (0-13.0) /HPF Salicylates (2.8-20.0) mg/dL Acetaminophen 5.0 L (10.0-30.0) ug/mL All other labs normal.
[2021-08-07] MEDS ORDERED: HALOPERIDOL 2 MG TAB PO SCH (12:00)
[2021-08-07 19:38] VITALS: BP 143/80
[2021-08-07] MEDS ORDERED: DOXEPIN 10 MG CAP PO SCH (22:00)
== END 2021-08-07 20:10 ==
LOC: ED 21:00
DX: Z13.30 Encounter for screening examination for mental health and behavioral disorders, unspecified (principal); I10 Essential (primary) hypertension; E66.01 Morbid (severe) obesity due to excess calories; Z88.0 Allergy status to penicillin; Z20.822 Contact with and (suspected) exposure to COVID-19
CPT/HCPCS: 36415; 80048; 80307; 81001; 84703; 85027; 99285; U0003; 80320; G0480

== ENCOUNTER 2021-12-07 10:12 | Emergency (ER) | payer MEDICARE ==
[2021-12-07] MEDS ORDERED: ACETAMINOPHEN 325 MG TAB PO ONE (12:04)
[2021-12-07] MEDS ORDERED: amLODIPine 5 MG TAB PO ONE (12:05)
[2021-12-07] MEDS ORDERED: SODIUM CHLORIDE 0.9% 1000 ML 1,000 ML IV ONE (12:05)
[2021-12-07] MEDS ORDERED: KETOROLAC 30 MG/1 ML INJ IM ONE (12:08)
--- NOTE | 2021-12-07 12:12 | Emergency Department Report ---
ED Headache HPI - General Chief Complaint: Headache Stated Complaint: MIGRAINE X 1WEEK Source: patient - History of Present Illness Initial Comments: 20 Y F with past medical history of hypertension reports having a headache for 1 week. Patient states that she was taking Motrin and Tylenol once a day while she was incarcerated. Patient reports that she just got up today. Patient states that she also takes amlodipine 5 mg for her hypertension reports no medication taken today. Denies nausea, no vomiting, no dizziness, no diarrhea, no chest pain, no shortness of breath, no vision changes. No other acute changes reported at this moment. Allergies/Adverse Reactions: Allergies amoxicillin Allergy (Verified 12/07/21 10:22) Anaphylaxis Penicillins Allergy (Verified 12/07/21 10:22) Anaphylaxis quetiapine [From Seroquel] Allergy (Verified 12/07/21 10:22) Angioedema Home Medications: Ambulatory Orders Sertraline [Zoloft] 50 mg PO DAILY 08/25/17 risperiDONE [RisperDAL] 2 mg PO QHS 08/25/17 amLODIPine 5 mg PO DAILY 30 Days #30 tab 12/07/21 ED Review of Systems ROS: Stated complaint: MIGRAINE X 1WEEK Other details as noted in HPI ED Past Medical Hx - Past Medical History Hx Hypertension: Yes Hx Psychiatric Treatment: Yes (schizophrenia, hearing voices, depression) Additional medical history: obesity - Social History Smoking Status: Never Smoker Substance Use Type: None - Medications Home Medications: Home Medications Medication Instructions Recorded Confirmed Last Taken Type Sertraline [Zoloft] 50 mg PO DAILY 08/25/17 12/27/19 08/25/17 History risperiDONE [RisperDAL] 2 mg PO QHS 08/25/17 12/27/19 08/24/17 History amLODIPine 5 mg PO DAILY 30 Days #30 tab 12/07/21 Unknown Rx ED Physical Exam - General Limitations: No Limitations General appearance: alert, in no apparent distress - Head Head exam: Present: atraumatic, normocephalic - Eye Eye exam: Present: normal appearance - ENT ENT exam: Present: mucous membranes moist - Neck Neck exam: Present: normal inspection - Respiratory Respiratory exam: Present: normal lung sounds bilaterally. Absent: respiratory distress - Cardiovascular Cardiovascular Exam: Present: regular rate, normal rhythm. Absent: systolic murmur, diastolic murmur, rubs, gallop - GI/Abdominal GI/Abdominal exam: Present: soft, normal bowel sounds - Extremities Exam Extremities exam: Present: normal inspection - Back Exam Back exam: Present: normal inspection - Neurological Exam Neurological exam: Present: alert, altered, oriented X3, normal gait, motor sensory deficit - Psychiatric Psychiatric exam: Present: normal affect, normal mood - Skin Skin exam: Present: warm, dry, intact, normal color. Absent: rash ED Course Vital Signs 12/07/21 12/07/21 12/07/21 10:20 11:20 12:04 Temperature 99.2 F Pulse Rate 100 H 76 Respiratory 18 18 Rate Blood Pressure Blood Pressure 150/90 [Left] Blood Pressure 118/82 [Right] O2 Sat by Pulse 99 100 100 Oximetry 12/07/21 13:23 Temperature Pulse Rate Respiratory Rate Blood Pressure 118/72 Blood Pressure [Left] Blood Pressure [Right] O2 Sat by Pulse Oximetry ED Medical Decision Making - Medical Decision Making 18-year-old female past medical history hypertension, reports headache for 1 week and reports taken Tylenol and Motrin while she was incarcerated. Patient reports being released today and has not been able to take her hypertensive medication as well. Patient has no neurological deficits. Patient patient amlodipine was withheld due to her blood pressure being within normal range. Patient given medicine for her headache. Patient stable for discharge Patient states that she was follow her primary care provider. Refills for amlodipine 5 mg once a day for 30 days given. Patient agrees with plan of care verbalizes understanding. Patient informed to come back to the ER if symptoms get worse. Vital Signs 12/07/21 12/07/21 12/07/21 10:20 11:20 12:04 Temperature 99.2 F Pulse Rate 100 H 76 Respiratory 18 18 Rate Blood Pressure Blood Pressure 150/90 [Left] Blood Pressure 118/82 [Right] O2 Sat by Pulse 99 100 100 Oximetry 12/07/21 13:23 Temperature Pulse Rate Respiratory Rate Blood Pressure 118/72 Blood Pressure [Left] Blood Pressure [Right] O2 Sat by Pulse Oximetry Critical care attestation.: If time is entered above; I have spent that time in minutes in the direct care of this critically ill patient, excluding procedure time. ED Disposition Clinical Impression: Headache, Hypertension Disposition: 01 HOME / SELF CARE / HOMELESS Is pt being admited?: No Does the pt Need Aspirin: No Condition: Stable Instructions: General Headache Without Cause, Hypertension, Adult, Hypertension (ED) Prescriptions: amLODIPine 5 mg PO DAILY 30 Days #30 tab Referrals: TATUM DURBIN MD [Primary Care Provider] - 3-5 Days Time of Disposition: 12:20
[2021-12-07 13:25] VITALS: BP 118/72
== END 2021-12-07 13:35 | disposition home or self-care (01) ==
LOC: ED 10:12
DX: R51.9 Headache, unspecified (principal); I10 Essential (primary) hypertension; F20.9 Schizophrenia, unspecified; F32.9 Major depressive disorder, single episode, unspecified; E66.9 Obesity, unspecified; Z88.0 Allergy status to penicillin; Z88.8 Allergy status to other drugs, medicaments and biological substances
CPT/HCPCS: 96372; 99283; J1885